=== PATIENT | female | born 1950 | race Caucasian/White ===

== ENCOUNTER 2018-01-03 19:14 | Emergency (ER) | payer OTHER ==
[2018-01-03] MEDS ORDERED: LIDOCAINE 1% 20 ML MDV ONE (19:30)
--- NOTE | 2018-01-03 20:01 | ER ---
Nurse's Notes [facility] Name: Brandy King Age: 67 yrs Sex: Female : 1950 Arrival Date: 01/03/2018 Time: 19:20 Bed 13 Private MD: None, None Diagnosis: Laceration without foreign body of right hand Presentation: 01/03 19:21 Presenting complaint: Patient states: Glass light bulb broke in her right hand just aj [employer]. Transition of care: patient was not received from another setting of care. Complicating Factors: There are no complicating factors for this patient. Onset of symptoms was January 03, 2018. Care prior to arrival: None. 19:21 Method Of Arrival: Ambulatory aj 19:21 Acuity: ЕЛЕНА 4 aj 20:00 Risk Assessment: Do you want to hurt yourself or someone else? Patient reports no cr4 desire to harm self or others. 20:27 Initial Sepsis Screen: Does the patient meet any 2 criteria? RR > 20 per min. Does the cr4 patient have a suspected source of infection?. Triage Assessment: 19:23 General: Appears in no apparent distress. comfortable, Behavior is calm, cooperative, aj appropriate for age. Pain: Complains of pain in palmar aspect of proximal phalanx of right thumb, palm of right hand and Right first web space. Neuro: Level of Consciousness is awake, alert, obeys commands, Oriented to person, place, time, situation, Appropriate for age. Respiratory: Airway is patent Respiratory effort is even, unlabored, Respiratory pattern is regular, symmetrical. Derm: Skin is intact, is healthy with good turgor, Skin is pink, warm \T\ dry. normal. Injury Description: Laceration sustained to right hand. Historical: - Allergies: 19:23 No Known Allergies; aj - Home Meds: 19:23 Klonopin Oral [Active]; Vesicare oral oral [Active]; aj - PMHx: 19:23 Depression; aj - Immunization history:: Last tetanus immunization: < 10 years ago. - Social history:: Smoking status: Patient/guardian denies using tobacco. - Ebola Screening: : Patient negative for fever greater than or equal to 101.5 degrees Fahrenheit, and additional compatible Ebola Virus Disease symptoms Patient denies exposure to infectious person Patient denies travel to an Ebola-affected area in the 21 days before illness onset No symptoms or risks identified at this time. Screenin:21 Abuse screen: Denies threats or abuse. Nutritional screening: No deficits noted. cr4 Tuberculosis screening: No symptoms or risk factors identified. Fall Risk None identified. Assessment: 19:50 General: Appears uncomfortable, slender, well groomed, Behavior is calm, cooperative. cr4 Neuro: No deficits noted. Cardiovascular: No deficits noted. Respiratory: No deficits noted. GI: No deficits noted. : No deficits noted. EENT: No deficits noted. Derm: Wound noted right thumb Reports pain that is 8 out of 10 on a pain scale. Parent/caregiver reports the patient having. Musculoskeletal: Circulation, motion, and sensation intact. Capillary refill < 3 seconds, in bilateral Range of motion: intact in all extremities, Injury Description: Laceration sustained to right thumb is jagged, 0.5 to 2.5 cm long, bleeding moderately, was sustained 30-60 minutes ago. is bleeding moderately. Vital Signs: 19:23 BP 162 / 76; Pulse 73; Resp 18; Temp 98.5; Pulse Ox 96% on R/A; Weight 58.06 kg; Height aj 5 ft. 2 in. (157.48 cm); Pain 10/10; 20:06 BP 153 / 82; Pulse 69; Resp 18; Temp 98.3; Pulse Ox 96% ; Pain 4/10; cr4 19:23 Body Mass Index 23.41 (58.06 kg, 157.48 cm) aj ED Course: 19:20 Patient arrived in ED. ds1 19:22 Triage completed. aj 19:23 Arm band placed on left wrist. Patient placed in an exam room. aj 19:24 Edgar Wharton MD is Attending Physician. gs 20:19 None, None is Private Physician. ds1 20:21 Patient has correct armband on for positive identification. Side rails up X 1. cr4 20:21 Assist provider with laceration repair on right thumb. that was between 2.6 to 7.5 cm cr4 using sutures. Set up tray. Performed by Edgar Wharton MD Dressed with 4X4s, Adaptic, Kerlix, Patient tolerated well. Patient did not have IV access during this emergency room visit. 20:26 Sling applied to right arm. cr4 Administered Medications: 20:09 Drug: [place] 5 mg-325 mg 1 tabs Route: PO; cr4 20:28 Follow up: Response: No adverse reaction cr4 Outcome: 20:00 Discharge ordered by . gs 20:24 Discharged to home ambulatory, with family. cr4 20:24 Condition: improved 20:24 Discharge instructions given to patient, Instructed on discharge instructions, follow up and referral plans. medication usage, Demonstrated understanding of instructions, follow-up care, medications, wound care, Prescriptions given X 2. 20:28 Patient left the ED. cr4 Signatures: Shani Oneal RN RN Marycruz Haas ds1 Leana Bardales RN RN cr4 Edgar Wharton MD MD gs Corrections: (The following items were deleted from the chart) 01/04 05:42 05 20:21 Assist provider with laceration repair on right thumb. that was between 2.6 cr4 to 7.5 cm using sutures. Set up tray. Performed by Edgar Wharton MD Dressed with Adaptic, Kerlix, Patient tolerated well. cr4
--- NOTE | 2018-01-03 20:01 | EDPHYS ---
Physician Documentation [facility] Name: Brandy King Age: 67 yrs Sex: Female : 1950 Arrival Date: 01/03/2018 Time: 19:20 Bed 13 Private MD: None, None ED Physician Edgar Wharton HPI: 01/03 19:54 This 67 yrs old Female presents to ER via Ambulatory with complaints of gs Laceration To Hand. 19:54 The patient has a laceration related to: doing crafts, occurred at home. The gs laceration(s) is(are) located on the Right first web space. Onset: The symptoms/episode began/occurred acutely, just prior to arrival. Associated signs and symptoms: Pertinent negatives: heavy bleeding, numbness distal to injury. The patient has not experienced similar symptoms in the past. The patient has not recently seen a physician. Historical: - Allergies: 19:23 No Known Allergies; aj - Home Meds: 19:23 Klonopin Oral [Active]; Vesicare oral oral [Active]; aj - PMHx: 19:23 Depression; aj - Immunization history:: Last tetanus immunization: < 10 years ago. - Social history:: Smoking status: Patient/guardian denies using tobacco. - Ebola Screening: : Patient negative for fever greater than or equal to 101.5 degrees Fahrenheit, and additional compatible Ebola Virus Disease symptoms Patient denies exposure to infectious person Patient denies travel to an Ebola-affected area in the 21 days before illness onset No symptoms or risks identified at this time. ROS: 19:54 All other systems are negative. gs Exam: 19:54 Constitutional: The patient appears alert, awake. gs 19:54 Musculoskeletal/extremity: Extremities: ROM: no acute changes, Circulation is intact in all extremities. Tendon exam: specific tendon testing normal through active and passive range of motion 19:54 Skin: injury, laceration(s), the wound is approximately 3 cm(s), with a depth of .5 cm(s), of the Right first web space. 19:54 Neuro: Exam negative for acute changes. Vital Signs: 19:23 BP 162 / 76; Pulse 73; Resp 18; Temp 98.5; Pulse Ox 96% on R/A; Weight 58.06 kg; Height aj 5 ft. 2 in. (157.48 cm); Pain 10/10; 20:06 BP 153 / 82; Pulse 69; Resp 18; Temp 98.3; Pulse Ox 96% ; Pain 4/10; cr4 19:23 Body Mass Index 23.41 (58.06 kg, 157.48 cm) aj Laceration: 19:54 Wound Repair of 3cm ( 1.2in ) subcutaneous laceration to Right first web space. Distal gs neuro/vascular/tendon intact. Anesthesia: Local anesthetic administered with 6 mls of 1% lidocaine. Wound prep: Simple cleansing, Wound irrigation with saline. Skin closed with 4 4-0 Prolene using simple sutures and sterile technique. Patient tolerated well. MDM: 19:50 Patient medically screened. 19:54 Data reviewed: vital signs, nurses notes. Response to treatment: the patient's symptoms gs have markedly improved after treatment, and as a result, I will discharge patient. 19:54 Differential diagnosis: superficial laceration, tendon injury, vascular injury. 01/03 19:53 Order name: Sling; Complete Time: 20:04 Administered Medications: 20:09 Drug: [place] 5 mg-325 mg 1 tabs Route: PO; cr4 20:28 Follow up: Response: No adverse reaction cr4 Disposition: 01/03/18 20:00 Discharged to Home. Impression: Laceration without foreign body of right hand. - Condition is Stable. - Discharge Instructions: Laceration Care, Adult. - Prescriptions for Keflex 500 mg Oral Capsule - take 1 capsule by ORAL route every 12 hours for 5 days; 10 capsule. Tylenol- Codeine #4 300-60 mg Oral Tablet - take 1 tablet by ORAL route every 6 hours As needed; 6 tablet. - Medication Reconciliation Form, Thank You Letter, Antibiotic Education, Prescription Opioid Use form. - Follow up: Private Physician; When: 2 - 3 days; Reason: Re-evaluation by your physician. Signatures: Shani Oneal RN RN Leana Morgan RN RN cr4 Edgar Wharton MD MD Corrections: (The following items were deleted from the chart) 20:28 20:00 01/03/2018 20:00 Discharged to Home. Impression: Laceration without foreign body cr4 of right hand. Condition is Stable. Forms are Medication Reconciliation Form, Thank You Letter, Antibiotic Education, Prescription Opioid Use. Follow up: Private Physician; When: 2 - 3 days; Reason: Re-evaluation by your physician. gs
[2018-01-03] MEDS ORDERED: HYDROCODONE/APAP 5/325 MG TAB ONE (20:06)
== END 2018-01-03 20:28 | disposition home or self-care (01) ==
LOC: ER 19:14
PROC: 0JQJ0ZZ Repair Right Hand Subcutaneous Tissue and Fascia, Open Approach (ICD-10-PCS; principal; 2018-01-03)
DX: S61.411A Laceration without foreign body of right hand, initial encounter (principal); W45.8XXA Other foreign body or object entering through skin, initial encounter; Y93.89 Activity, other specified; Y92.009 Unspecified place in unspecified non-institutional (private) residence as the place of occurrence of the external cause; F32.9 Major depressive disorder, single episode, unspecified
CPT/HCPCS: 99284